=== PATIENT | female | born 1970 | race Caucasian/White ===

== ENCOUNTER 2017-02-21 12:55 | Emergency (ER) | payer BC, OTHER ==
[~2017-02-21] VITALS: Ht 163.8 cm; Wt 54.2 kg
[~2017-02-21 12:55] MED LIST: ACET-1256 PO; MULT-726 PO; OXYC1TAB3 PO; WARF5TAB7 PO
[2017-02-21 12:56] VITALS: BP 101/65; PULSE 93; TEMP 37; O2SAT 98; Ht 163.8 cm; Wt 54.2 kg
--- NOTE | 2017-02-21 13:25 | DIAGNOSTIC IMAGING REPORT ---
R WRIST MIN 3 VIEWS ROUTINE HISTORY: 47 years-old Female RIGHT, EVAL FX acute right wrist pain status post fall. COMPARISON: None available. TECHNIQUE: 4 views of the right wrist FINDINGS: There is mild soft tissue swelling about the wrist without acute fracture, dislocation or significant degenerative changes. IMPRESSION: Mild soft tissue swelling without acute bony abnormality. The above report was generated using voice recognition software. It may contain grammatical, syntax or spelling errors. Electronically signed by: Aidan Cabello M.D. 02/21/2017 1:24 PM Dictated Date/Time: 02/21/2017 1:23 PM
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
== END 2017-02-21 14:42 | disposition home or self-care (01) ==
LOC: C.EDB 12:57 → C.EDD 14:42
DX: S63.501A Unspecified sprain of right wrist, initial encounter (principal); X50.9XXA Other and unspecified overexertion or strenuous movements or postures, initial encounter; Z79.01 Long term (current) use of anticoagulants

== ENCOUNTER 2022-01-03 19:45 | Inpatient (IN) ==
[2022-01-03] MEDS ORDERED: ACETAMINOPHEN 1000 MG/100 ML IV IV STA (20:03)
[2022-01-03] MEDS ORDERED: ONDANSETRON INJ 2 MG/ML 2 ML VIAL IV STA (20:03)
[2022-01-03] MEDS ORDERED: SODIUM CHLORIDE 0.9% 1000ML 2,000 ML IV ONE (20:03)
[2022-01-03] MEDS ORDERED: HYDROmorphone INJ 0.5 MG/0.5 ML SYR IV STA ×2 (20:03→20:07)
--- NOTE | 2022-01-03 20:07 | Emergency Department Note ---
Impression & Plan Severe sepsis, Pyelonephritis ED Provider Note Name: MERLE SARABIA Age: 51 Sex: F Arrives Via: Walk-In Informant: Patient, friend ED Provider: Enzo Peoples MD Chief Complaint: Illness Impression: As per impressions above Medical Decision Makin-year-old female with a remote history of PEs and renal colic who is treated for a episode of pyelonephritis about 2 months ago arrives quite ill. Patient is febrile, tachycardic and ill-appearing on arrival. She is severely weak and unable to even stand. She is clearly in severe sepsis based on these findings. Her laboratory work-up was immediately started with blood cultures, lactic acid and she was empirically ordered 2 L normal saline along with meropenem following second blood culture obtained. She has diffuse abdominal tenderness to palpation primarily over the right side on repeat examinations. In the setting of a positive UA for UTI I did feel that getting the CT would be indicated. CT does show significant inflammation of the right kidney consistent with pyelonephritis. Patient's vitals are vastly improved with Tylenol and fluids. On repeat evaluation she is well-hydrated she is breathing comfortably and looks much improved. I will note that patient was in severe sepsis on arrival to the ER. She does not have hypotension other than with standing she is orthostatic. She does not have a significantly elevated lactate greater than 4. At this time she is not in septic shock. Prior Medical Record and Triage/Nursing Notes reviewed by Me Additional history obtained from chart Differentials:Viral syndrome, pharyngitis, pneumonia, influenza, meningitis, urinary tract infection, sepsis, bacteremia, as well as other pathologies. Vital Signs: reviewed and remarkable for fever, tachy Interventions: nss bolus 2 L IV, Meropenem 500mg IV, Tylenol IV Labs:Reviewed and remarkable for elevated WBC, elevated glucose, elevated Procalcitonin Imaging:ct a/p with iv contrast as per radiologist, left pyelonephritis Consults:Dr Gila Clayton Hospitalist Plan: Disposition:Hospitalization. Condition: Good History of Present Illness:51-year-old female arrives for evaluation of illness. Patient notes 2 to 3 days worsening urinary burning, frequency, flank pain. Over the last day increasing weakness, fatigue, abdominal pain, fevers, chills. She notes no bowel movement in the last 24 to 48 hours and feels somewhat constipated. She has diffuse abdominal discomfort now. She has no chest pain, shortness of breath, headache, neck pain, leg rashes, bruising or other signs or symptoms. She has no recent falls, trauma, injury. She had no medications prior to arrival. Any exertion makes worse rest makes better. Notes she had pyelonephritis about a month ago treated with Levaquin. She notes she had felt much better after this initially. ROS: See above HPI for pertinent positives & negatives. A total of 10 systems reviewed and were otherwise negative. Past Medical History:PE, renal colic Past Surgical History:Partial hysterectomy Family History:No significant past medical history, denies any renal disease or kidney stones and family Social History:Half pack a day smoker minimal alcohol intake Home Medications:No daily medications Allergies:Penicillin Vitals:Blood Pressure: 109/61, Pulse 116, RR 20, T 37.6C, O2 95% on RA Physical Exam: GENERAL: Patient is uncomfortable appearing and in moderate distress. Patient orthostatic on trying to stand from wheelchair. EYES: No scleral icterus, unremarkable pupils. ENT: Mucous membranes dry, no nasal congestion. NECK: No masses appreciated, nomeningismus, trachea is midline. RESPIRATORY: No dyspnea. Clear to auscultation and equal bilaterally. No wheeze, no rhonchi. CARDIOVASCULAR: Tachy.No murmurs, rubs, gallops appreciated. GASTROINTESTINAL: Diffuse mild TTP, moderate right abdominal TTP, otherwise abdomen soft, no peritonitis.Bowel sounds positive.No masses appreciated. BACK: No midline tenderness, + bilateral CVA tenderness EXTREMITIES: Normal motion all extremities, no cyanosis, no edema. NEUROLOGIC: Alert and oriented, no acute motor or sensory deficits, no focal weakness, cranial nerves grossly intact. SKIN: No rash, no jaundice, no diaphoresis. PSYCH: Appropriate GCS: 15 ED Course: Times/Reassessments: Patient vastly improved with IV fluids heart rate has improved she is well-hydrated and she looks much better. Critical Care: I have personally spent 30 minutes of critical care time in the direct management of this patient. Severe sepsis with pyelonephritis requiring fluids resucitation and management. This was a life/limb threatening event. This 30 minutes is in excess of all separately billable procedures. Enzo Peoples MD Past Med/Surg History Medical History Acute UTI Kidney stone Social History Smoking Status: Current every day smoker Preferred Language: Guamanian Feels Safe at Home: Yes Allergies Allergies Allergy/AdvReac Type Severity Reaction Status Date / Time Penicillins Allergy Severe as Unverified 01/03/22 22:14 child-throat swelled, hives ALL PAIN MEDS Allergy Unknown very Uncoded 01/03/22 22:14 sensative to even sm doses. very sleepy Home Meds Home Medications Medication Instructions Recorded Confirmed No Known Home Medications 01/03/22 01/03/22 Results & Data (ED) Vital Signs Vital Signs - 24 hr 01/03/22 19:52 01/03/22 21:06 Temperature 37.6 C H 37.8 C H Temperature Source Temporal Artery Scan Oral Pulse Rate 116 H Respiratory Rate 20 Respiratory Effort / Characteristics Non-Labored Spontaneous Respiratory Depth Normal Blood Pressure 109/61 Blood Pressure Mean 77 Blood Pressure Position Sitting Pulse Oximetry 95 Oxygen Delivery Method Room Air Sepsis Recent Fever Within 48 Hours No Sepsis New/Unexplained Change in Mental Status N/A Sepsis Action Taken by Nursing No Action Required Laboratory Data Result diagrams: 01/03/22 20:20 01/03/22 20:20 Lab Results 01/03/22 01/03/22 01/03/22 Range/Units 20:15 20:20 20:20 WBC 13.58 H (4.8-10.8) K/ul RBC 3.89 L (3.93-5.22) M/uL Hgb 12.9 (12.0-16.0) g/dl Hct 37.8 (34.1-44.9) % MCV 97.2 (80.0-100.0) fL MCH 33.2 (25.0-34.0) pg MCHC 34.1 (32.0-36.0) g/dL RDW Std Deviation 47.0 H (36.4-46.3) fL RDW Coeff of Nicole 13.2 (11.5-14.5) % Plt Count 219 (130-400) K/uL MPV 8.9 L (9.4-12.3) fL Immature Gran % (Auto) 0.4 % Neut % (Auto) 81.8 % Lymph % (Auto) 9.9 % [place] % (Auto) 7.7 % Eos % (Auto) 0.0 % Baso % (Auto) 0.2 % Neut # (Auto) 11.11 H (1.4-6.5) K/uL Lymph # (Auto) 1.34 (1.2-3.4) K/uL [place] # (Auto) 1.05 H (0.24-0.82) K/uL Eos # (Auto) 0.00 (0-0.50) K/uL Baso # (Auto) 0.03 (0-0.2) K/uL Immature Gran # (Auto) 0.05 H (0.00-0.02) K/uL Sodium (136-145) mmol/L Potassium (3.5-5.1) mmol/L Chloride (98-107) mmol/L Carbon Dioxide (21-32) mmol/L Anion Gap (3-11) BUN (6-23) mg/dl Creatinine (0.6-1.2) mg/dl Est Cr Clr Drug Dosing ml/min Est GFR ( Amer) ml/min Est GFR (Non-Af Amer) ml/min BUN/Creatinine Ratio (10-20) Glucose (70-99(Fasting)) mg/dl Lactate 2.3 H* (0.4-2.0) mmol/L Calcium (8.5-10.1) mg/dl Magnesium (1.7-2.4) mg/dl Total Bilirubin (0.2-1.0) mg/dl Direct Bilirubin (0-0.2) mg/dl AST (13-39) U/L ALT (7-52) U/L Alkaline Phosphatase (34-104) U/L Troponin I High Sens (0-14) pg/ml Total Protein (6.0-8.3) gm/dl Albumin (3.4-5.0) gm/dl Lipase (11-82) U/L Procalcitonin (0-0.5) ng/ml TSH (0.300-4.500) uIu/ml Urine Color Yellow Urine Appearance Cloudy A (Clear) Urine pH 5.5 (4.5-7.5) Ur Specific [place] 1.019 (1.000-1.030) Urine Protein 3+ H (Negative) Urine Glucose (UA) Negative (Negative) Urine Ketones Trace H (Negative) Urine Blood 3+ H (Negative) Urine Nitrite Positive A (Negative) Urine Bilirubin Negative (Negative) Urine Urobilinogen Negative (Negative) Ur Leukocyte Esterase 2+ H (Negative) Urine WBC (Auto) >30 H (0-5) /hpf Urine RBC (Auto) >30 H (0-4) /hpf U Hyaline Cast (Auto) 1-5 (0-5) /lpf U Epithel Cells (Auto) 20-30 H (0-5) /lpf Urine Bacteria (Auto) 3+ H (Negative) SARS-CoV-2, RNA, NAAT (NEGATIVE) 01/03/22 01/03/22 01/03/22 Range/Units 20:20 20:20 20:25 WBC (4.8-10.8) K/ul RBC (3.93-5.22) M/uL Hgb (12.0-16.0) g/dl Hct (34.1-44.9) % MCV (80.0-100.0) fL MCH (25.0-34.0) pg MCHC (32.0-36.0) g/dL RDW Std Deviation (36.4-46.3) fL RDW Coeff of Nicole (11.5-14.5) % Plt Count (130-400) K/uL MPV (9.4-12.3) fL Immature Gran % (Auto) % Neut % (Auto) % Lymph % (Auto) % [place] % (Auto) % Eos % (Auto) % Baso % (Auto) % Neut # (Auto) (1.4-6.5) K/uL Lymph # (Auto) (1.2-3.4) K/uL [place] # (Auto) (0.24-0.82) K/uL Eos # (Auto) (0-0.50) K/uL Baso # (Auto) (0-0.2) K/uL Immature Gran # (Auto) (0.00-0.02) K/uL Sodium 131 L (136-145) mmol/L Potassium 3.6 (3.5-5.1) mmol/L Chloride 98 (98-107) mmol/L Carbon Dioxide 23 (21-32) mmol/L Anion Gap 10 (3-11) BUN 11 (6-23) mg/dl Creatinine 0.99 (0.6-1.2) mg/dl Est Cr Clr Drug Dosing 53.6 ml/min Est GFR ( Amer) 77.0 ml/min Est GFR (Non-Af Amer) 66.4 ml/min BUN/Creatinine Ratio 11.1 (10-20) Glucose 228 H (70-99(Fasting)) mg/dl Lactate (0.4-2.0) mmol/L Calcium 9.1 (8.5-10.1) mg/dl Magnesium 1.8 (1.7-2.4) mg/dl Total Bilirubin 0.5 (0.2-1.0) mg/dl Direct Bilirubin 0.0 (0-0.2) mg/dl AST 12 L (13-39) U/L ALT 11 (7-52) U/L Alkaline Phosphatase 93 (34-104) U/L Troponin I High Sens 4.0 (0-14) pg/ml Total Protein 7.5 (6.0-8.3) gm/dl Albumin 3.9 (3.4-5.0) gm/dl Lipase 13 (11-82) U/L Procalcitonin 0.73 H (0-0.5) ng/ml TSH (0.300-4.500) uIu/ml Urine Color Urine Appearance (Clear) Urine pH (4.5-7.5) Ur Specific [place] (1.000-1.030) Urine Protein (Negative) Urine Glucose (UA) (Negative) Urine Ketones (Negative) Urine Blood (Negative) Urine Nitrite (Negative) Urine Bilirubin (Negative) Urine Urobilinogen (Negative) Ur Leukocyte Esterase (Negative) Urine WBC (Auto) (0-5) /hpf Urine RBC (Auto) (0-4) /hpf U Hyaline Cast (Auto) (0-5) /lpf U Epithel Cells (Auto) (0-5) /lpf Urine Bacteria (Auto) (Negative) SARS-CoV-2, RNA, NAAT NEGATIVE (NEGATIVE) 01/03/22 01/03/22 Range/Units 21:01 22:20 WBC (4.8-10.8) K/ul RBC (3.93-5.22) M/uL Hgb (12.0-16.0) g/dl Hct (34.1-44.9) % MCV (80.0-100.0) fL MCH (25.0-34.0) pg MCHC (32.0-36.0) g/dL RDW Std Deviation (36.4-46.3) fL RDW Coeff of Nicole (11.5-14.5) % Plt Count (130-400) K/uL MPV (9.4-12.3) fL Immature Gran % (Auto) % Neut % (Auto) % Lymph % (Auto) % [place] % (Auto) % Eos % (Auto) % Baso % (Auto) % Neut # (Auto) (1.4-6.5) K/uL Lymph # (Auto) (1.2-3.4) K/uL [place] # (Auto) (0.24-0.82) K/uL Eos # (Auto) (0-0.50) K/uL Baso # (Auto) (0-0.2) K/uL Immature Gran # (Auto) (0.00-0.02) K/uL Sodium (136-145) mmol/L Potassium (3.5-5.1) mmol/L Chloride (98-107) mmol/L Carbon Dioxide (21-32) mmol/L Anion Gap (3-11) BUN (6-23) mg/dl Creatinine (0.6-1.2) mg/dl Est Cr Clr Drug Dosing ml/min Est GFR ( Amer) ml/min Est GFR (Non-Af Amer) ml/min BUN/Creatinine Ratio (10-20) Glucose (70-99(Fasting)) mg/dl Lactate 0.7 (0.4-2.0) mmol/L Calcium (8.5-10.1) mg/dl Magnesium (1.7-2.4) mg/dl Total Bilirubin (0.2-1.0) mg/dl Direct Bilirubin (0-0.2) mg/dl AST (13-39) U/L ALT (7-52) U/L Alkaline Phosphatase (34-104) U/L Troponin I High Sens (0-14) pg/ml Total Protein (6.0-8.3) gm/dl Albumin (3.4-5.0) gm/dl Lipase (11-82) U/L Procalcitonin (0-0.5) ng/ml TSH 1.609 (0.300-4.500) uIu/ml Urine Color Urine Appearance (Clear) Urine pH (4.5-7.5) Ur Specific [place] (1.000-1.030) Urine Protein (Negative) Urine Glucose (UA) (Negative) Urine Ketones (Negative) Urine Blood (Negative) Urine Nitrite (Negative) Urine Bilirubin (Negative) Urine Urobilinogen (Negative) Ur Leukocyte Esterase (Negative) Urine WBC (Auto) (0-5) /hpf Urine RBC (Auto) (0-4) /hpf U Hyaline Cast (Auto) (0-5) /lpf U Epithel Cells (Auto) (0-5) /lpf Urine Bacteria (Auto) (Negative) SARS-CoV-2, RNA, NAAT (NEGATIVE) Administered Medications Lactated Ringer's (Lr) 1,000 mls @ 80 mls/hr IV .[id number] ONE Stop: 01/04/22 11:15 Last Admin: 01/04/22 00:40 Dose: 80 mls/hr Documented By: DORY Ibuprofen (Ibuprofen 200 Mg Tab) 200 mg PO Q6H PRN PRN Reason: Mild Pain 1-3 Stop: 02/02/22 22:45 Last Admin: 01/04/22 00:50 Dose: 200 mg Documented By: DORY Discontinued Medications Acetaminophen (Acetaminophen 1000 Mg/100 Ml Iv) 1,000 mg IV NOW STA Stop: 01/03/22 20:04 Last Admin: 01/03/22 20:35 Dose: 1,000 mg Documented By: MIRIAN Hydromorphone HCl (Hydromorphone Inj 0.5 Mg/0.5 Ml Syr) 0.5 mg IV NOW STA Stop: 01/03/22 20:04 Last Admin: 01/03/22 21:37 Dose: Not Given Documented By: SAMANTHA Hydromorphone HCl (Hydromorphone Inj 0.5 Mg/0.5 Ml Syr) 0.25 mg IV NOW STA Stop: 01/03/22 20:08 Last Admin: 01/03/22 20:37 Dose: 0.25 mg Documented By: MIRIAN Sodium Chloride (Nss 1000ml) 2,000 mls @ 999 mls/hr IV .Q2H1M ONE Stop: 01/03/22 22:03 Last Infusion: 01/03/22 22:54 Dose: 0 mls/hr Documented By: Admin: 01/03/22 20:37 Dose: 999 mls/hr Documented By: MIRIAN Meropenem 500 mg/ Syringe 10 mls @ 2 mls/min IV NOW STA; Protocol Stop: 01/03/22 20:41 Last Admin: 01/03/22 21:40 Dose: 2 mls/min Documented By: MIRIAN Magnesium Sulfate/Dextrose (Magnesium Sulfate / D5w) 1 gm in 100 mls @ 50 mls/ hr IV ONE ONE Stop: 01/04/22 00:04 Last Infusion: 01/04/22 01:09 Dose: 0 mls/hr Documented By: Admin: 01/03/22 22:38 Dose: 50 mls/hr Documented By: MIRIAN Ioversol (Optiray 300 100ml) 85 ml IV ONCE ONE Stop: 01/03/22 21:16 Last Admin: 01/03/22 21:15 Dose: 85 ml Documented By: KYLIE Ondansetron HCl (Ondansetron Inj 2 Mg/Ml 2 Ml Vial) 4 mg IV NOW STA Stop: 01/03/22 20:04 Last Admin: 01/03/22 20:35 Dose: 4 mg Documented By: MIRIAN Polyethylene Glycol (Polyethylene (Miralax) 17 Gm Pack) 17 gm PO NOW STA Stop: 01/03/22 22:47 Last Admin: 01/03/22 23:21 Dose: 17 gm Documented By: MIRIAN Potassium Chloride (Potassium Chloride Crtab 20 Meq Tabcr) 40 meq PO NOW STA Stop: 01/03/22 22:47 Last Admin: 01/03/22 23:21 Dose: 40 meq Documented By: MIRIAN Senna/Docusate Sodium (Docusate Sodium/Senna 50/8.6mg Tab) 1 tab PO NOW STA Stop: 01/03/22 23:10 Last Admin: 01/04/22 00:40 Dose: 1 tab Documented By: DORY Imaging Data Radiologist's Impression: Abdomen/Pelvis CT 01/03/22 20:56 CT abd pelvis IV con only CLINICAL HISTORY: sepsis, pyelonephritis TECHNIQUE: Helical axial images of the abdomen and pelvis were obtained and displayed. Automated dose lowering techniques and/or adjustment according to patient size were utilized for this exam. This exam was performed with intravenous contrast. CT DOSE: 246.71 mGy.cm COMPARISON: Comparison is made to CT abdomen pelvis 12/04/2021 FINDINGS: Lower chest: No acute abnormality Liver: Unremarkable. No focal lesions are seen. Gallbladder and biliary tree: No calcified gallstones. Normal caliber wall. No intra- or extrahepatic biliary ductal dilation. Pancreas: Unremarkable, no focal lesions. Spleen: Unremarkable. Adrenals: Mild ureteral thickening is unchanged from prior exam. Kidneys and ureters: The right kidney demonstrates wedge-shaped hypoperfusing regions without intact cortical rim. There is perinephric stranding. The ureter wall is thickened and hyperenhancing. The left kidney is unremarkable apart from subcentimeter hypodensities.. Bladder: Diffuse homogeneous wall thickening is seen. Reproductive organs: Unremarkable. Bowel: Unremarkable. Lymph nodes Retroperitoneal: Subcentimeter lymph nodes are noted. Pelvic: Unremarkable. Mesenteric: Unremarkable. Peritoneum: Normal. Vessels: Atherosclerotic calcifications are seen. Abdominal wall: Unremarkable. Bones: Degenerative changes in the visualized spine. IMPRESSION: 1. Findings are compatible with right pyoureter. Bladder wall thickening is compatible with cystitis. The left kidney is unremarkable. 2. Additional findings as above. ACT 112: Negative or not required by law. Electronically signed by: Kevin Sparks M.D. 01/03/2022 9:32 PM Discharge Plan Visit Data Chief Complaint: Abdominal Pain Stated Complaint: LOWER ABD PAIN, LOWER BACK PAIN ED Provider: Enzo Peoples Discharge Problem: Severe sepsis, Pyelonephritis Patient Disposition: Admitted As Inpatient Discharge Instructions Interventions: ED Discharge Assessment Last Done: 01/03/22 23:46
[2022-01-03 20:32] LABS: Basophils # (auto) 0.03 K/uL (0-0.2); Basophils % (auto) 0.2 %; Hematocrit (blood only) 37.8 % (34.1-44.9); Hemoglobin 12.9 g/dl (12.0-16.0); Immature Granulocytes # (auto) 0.05 K/uL (0.00-0.02); Immature Granulocytes % (auto) 0.4 %; Lymphocytes # (auto) 1.34 K/uL (1.2-3.4); Lymphocytes % (auto) 9.9 %; Mean Corpuscular Hemoglobin 33.2 pg (25.0-34.0); Mean Corpuscular Hgb Conc 34.1 g/dL (32.0-36.0); Mean Corpuscular Volume 97.2 fL (80.0-100.0); Mean Platelet Volume 8.9 fL (9.4-12.3); Monocytes # (auto) 1.05 K/uL (0.24-0.82); Monocytes % (auto) 7.7 %; Neutrophils # (auto) 11.11 K/uL (1.4-6.5); Neutrophils % (auto) 81.8 %; Platelet Count 219 K/uL (130-400); RDW Coefficient of Variation 13.2 % (11.5-14.5); Red Blood Count 3.89 M/uL (3.93-5.22); White Blood Count 13.58 K/ul (4.8-10.8)
[2022-01-03] MEDS ORDERED: MEROPENEM 500 MG in SYRINGE 0 ML IV STA (20:37)
[2022-01-03 20:40] LABS: Appearance Urine Cloudy (Clear); Bacteria Urine Automated 3+ (Negative); Bilirubin Urine Negative (Negative); Blood Urine 3+ (Negative); Color Urine Yellow; Epithelial Cell Urine Auto 20-30 /lpf (0-5); Glucose Urine UA Negative (Negative); Ketones Urine Trace (Negative); Leukocyte Esterase Urine 2+ (Negative); Nitrite Urine Positive (Negative); Protein Urine 3+ (Negative); RBC Urine Automated >30 /hpf (0-4); Specific Gravity Urine 1.019 (1.000-1.030); Urobilinogen Urine Negative (Negative); WBC Urine Automated >30 /hpf (0-5); pH Urine 5.5 (4.5-7.5)
[2022-01-03 20:52] LABS: Albumin Level 3.9 gm/dl (3.4-5.0); BUN Creatinine Ratio 11.1 (10-20); Bilirubin,Total 0.5 mg/dl (0.2-1.0); Calcium 9.1 mg/dl (8.5-10.1); Creatinine Clr Calc Pharmacy 53.6 ml/min; Est GFR (Non-African American) 66.4 ml/min; Magnesium 1.8 mg/dl (1.7-2.4); Potassium 3.6 mmol/L (3.5-5.1); Total Protein 7.5 gm/dl (6.0-8.3)
[2022-01-03] MEDS ORDERED: OPTIRAY 300 100mL IV ONE (21:15)
--- NOTE | 2022-01-03 21:34 | CT Scan Report ---
CT abd pelvis IV con only CLINICAL HISTORY: sepsis, pyelonephritis TECHNIQUE: Helical axial images of the abdomen and pelvis were obtained and displayed. Automated dose lowering techniques and/or adjustment according to patient size were utilized for this exam. This e xam was performed with intravenous contrast. CT DOSE: 246.71 mGy.cm COMPARISON: Comparison is made to CT abdomen pelvis 12/04/2021 FINDINGS: Lower chest: No acute abnormality Liver: Unremarkable. No focal lesions are seen. Gallbladder and biliary tree: No calcified gallstones. Normal caliber wall. No intra- or extrahepatic biliary ductal dilation. Pancreas: Unremarkable, no focal lesions. Spleen: Unremarkable. Adrenals: Mild ureteral thickening is unchanged from prior exam. Kidneys and ureters: The right kidney demonstrates wedge-shaped hypoperfusing regions without intact cortical rim. There is perinephric stranding. The ureter wall is thickened and hyperenhancing. The le ft kidney is unremarkable apart from subcentimeter hypodensities.. Bladder: Diffuse homogeneous wall thickening is seen. Reproductive organs: Unremarkable. Bowel: Unremarkable. Lymph nodes Retroperitoneal: Subcentimeter lymph nodes are noted. Pelvic: Unremarkable. Mesenteric: Unremarkable. Peritoneum: Normal. Vessels: Atherosclerotic calcifications are seen. Abdominal wall: Unremarkable. Bones: Degenerative changes in the visualized spine. IMPRESSION: 1. Findings are compatible with right pyoureter. Bladder wall thickening is compatible with cystitis . The left kidney is unremarkable. 2. Additional findings as above. ACT 112: Negative or not required by law. Electronically signed by: Kevin Sparks M.D. 01/03/2022 9:32 PM
[2022-01-03] MEDS ORDERED: MAGNESIUM SULFATE / D5W 1 GM/100 ML BAG IV ONE (22:05)
--- NOTE | 2022-01-03 22:41 | History & Physical Report ---
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 Heparin subcu Full code Text document was generated using [employer] voice recognition software. It may contain grammatical or spelling errors. Kindly contact undersigned for clarification of any documentation item in question. History of Present Illness Chief Complaint: Dysuria, abdominal pain Primary Care Provider: Forrest Smith (Former PCP Dr. Partida has since retired but patient requesting to follow-up with new provider at the clinic.) (Patient with prior [facility] account under the name Jayda Lundy, ) History obtained from patient and records. 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 Last confinement June 2015 for acute pulm embolism attributed to possible tamoxifen use. Patient discharged home on Coumadin course. Patient seen at the ER last month for low back pain with urinary frequency/dysuria and low-grade fever. Impression was pyelonephritis. Patient discharged on levofloxacin course Symptoms improved. 3 days history of dysuria symptoms associated with flank pain and lower abdominal pain. No hematuria. Some nausea. No emesis. Constipation. Fever chills at home no chest pain, no shortness of breath. Meropenem administered at the ER for sepsis. 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 very sleepy Home Medications Medication Instructions Recorded Confirmed Type No Known Home Medications 01/03/22 01/03/22 History Past Med/Surg History Medical History Acute UTI Kidney stone Social History Smoking Status: Current every day smoker Preferred Language: Faroese Feels Safe at Home: Yes Review of Systems Review of Systems: As per HPI, all other systems reviewed and negative Physical Exam Physical Exam: GENERAL: Slightly uncomfortable, pleasant, underweight, dysphonic, no respiratory distress SKIN: Normal color, warm HEENT: [place] palpebral conjunctivae, no ptosis, dry buccal mucosa NECK : Supple, no tenderness CHEST : CTA, no tenderness HEART : Tachycardic, no obvious murmurs ABDOMEN: Some distention, hypogastric tenderness EXTREMITIES : No LE swelling/tenderness, no other conspicuous deformities noted NEUROLOGIC : Coherent, no facial asymmetry, no other gross focality Results & Data Results & Data ([facility]) Vital Signs (Past 12 Hours) Vital Signs Temp Pulse Resp BP Pulse Ox O2 Del Method 01/03/22 21:06 37.8 C H 01/03/22 19:52 37.6 C H 116 H 20 109/61 95 Room Air Laboratory Results Laboratory Results WBC 13.58 K/ul (4.8-10.8) H 01/03/22 20:20 RBC 3.89 M/uL (3.93-5.22) L 01/03/22 20:20 Hgb 12.9 g/dl (12.0-16.0) 01/03/22 20:20 Hct 37.8 % (34.1-44.9) 01/03/22 20:20 MCV 97.2 fL (80.0-100.0) 01/03/22 20:20 MCH 33.2 pg (25.0-34.0) 01/03/22 20:20 MCHC 34.1 g/dL (32.0-36.0) 01/03/22 20:20 RDW Std Deviation 47.0 fL (36.4-46.3) H 01/03/22 20:20 RDW Coeff of Nicole 13.2 % (11.5-14.5) 01/03/22 20:20 Plt Count 219 K/uL (130-400) 01/03/22 20:20 MPV 8.9 fL (9.4-12.3) L 01/03/22 20:20 Immature Gran % (Auto) 0.4 % 01/03/22 20:20 Neut % (Auto) 81.8 % 01/03/22 20:20 Lymph % (Auto) 9.9 % 01/03/22 20:20 [place] % (Auto) 7.7 % 01/03/22 20:20 Eos % (Auto) 0.0 % 01/03/22 20:20 Baso % (Auto) 0.2 % 01/03/22 20:20 Neut # (Auto) 11.11 K/uL (1.4-6.5) H 01/03/22 20:20 Lymph # (Auto) 1.34 K/uL (1.2-3.4) 01/03/22 20:20 [place]y # (Auto) 1.05 K/uL (0.24-0.82) H 01/03/22 20:20 Eos # (Auto) 0.00 K/uL (0-0.50) 01/03/22 20:20 Baso # (Auto) 0.03 K/uL (0-0.2) 01/03/22 20:20 Immature Gran # (Auto) 0.05 K/uL (0.00-0.02) H 01/03/22 20:20 Sodium 131 mmol/L (136-145) L 01/03/22 20:20 Potassium 3.6 mmol/L (3.5-5.1) 01/03/22 20:20 Chloride 98 mmol/L (98-107) 01/03/22 20:20 Carbon Dioxide 23 mmol/L (21-32) 01/03/22 20:20 Anion Gap 10 (3-11) 01/03/22 20:20 BUN 11 mg/dl (6-23) 01/03/22 20:20 Creatinine 0.99 mg/dl (0.6-1.2) 01/03/22 20:20 Est Cr Clr Drug Dosing 53.6 ml/min 01/03/22 20:20 Est GFR ( Amer) 77.0 ml/min 01/03/22 20:20 Est GFR (Non-Af Amer) 66.4 ml/min 01/03/22 20:20 BUN/Creatinine Ratio 11.1 (10-20) 01/03/22 20:20 Glucose 228 mg/dl (70-99(Fasting)) H 01/03/22 20:20 Lactate 2.3 mmol/L (0.4-2.0) H* 01/03/22 20:20 Calcium 9.1 mg/dl (8.5-10.1) 01/03/22 20:20 Magnesium 1.8 mg/dl (1.7-2.4) 01/03/22 20:20 Total Bilirubin 0.5 mg/dl (0.2-1.0) 01/03/22 20:20 Direct Bilirubin 0.0 mg/dl (0-0.2) 01/03/22 20:20 AST 12 U/L (13-39) L 01/03/22 20:20 ALT 11 U/L (7-52) 01/03/22 20:20 Alkaline Phosphatase 93 U/L (34-104) 01/03/22 20:20 Troponin I High Sens 4.0 pg/ml (0-14) 01/03/22 20:20 Total Protein 7.5 gm/dl (6.0-8.3) 01/03/22 20:20 Albumin 3.9 gm/dl (3.4-5.0) 01/03/22 20:20 Lipase 13 U/L (11-82) 01/03/22 20:20 Procalcitonin 0.73 ng/ml (0-0.5) H 01/03/22 20:20 Urine Color Yellow 01/03/22 20:15 Urine Appearance Cloudy (Clear) A 01/03/22 20:15 Urine pH 5.5 (4.5-7.5) 01/03/22 20:15 Ur Specific Mccle[place]and 1.019 (1.000-1.030) 01/03/22 20:15 Urine Protein 3+ (Negative) H 01/03/22 20:15 Urine Glucose (UA) Negative (Negative) 01/03/22 20:15 Urine Ketones Trace (Negative) H 01/03/22 20:15 Urine Blood 3+ (Negative) H 01/03/22 20:15 Urine Nitrite Positive (Negative) A 01/03/22 20:15 Urine Bilirubin Negative (Negative) 01/03/22 20:15 Urine Urobilinogen Negative (Negative) 01/03/22 20:15 Ur Leukocyte Esterase 2+ (Negative) H 01/03/22 20:15 Urine WBC (Auto) >30 /hpf (0-5) H 01/03/22 20:15 Urine RBC (Auto) >30 /hpf (0-4) H 01/03/22 20:15 U Hyaline Cast (Auto) 1-5 /lpf (0-5) 01/03/22 20:15 U Epithel Cells (Auto) 20-30 /lpf (0-5) H 01/03/22 20:15 Urine Bacteria (Auto) 3+ (Negative) H 01/03/22 20:15 SARS-CoV-2, RNA, NAAT NEGATIVE (NEGATIVE) 01/03/22 20:25 Impressions Abdomen/Pelvis CT 01/03/22 20:56 CT abd pelvis IV con only CLINICAL HISTORY: sepsis, pyelonephritis TECHNIQUE: Helical axial images of the abdomen and pelvis were obtained and displayed. Automated dose lowering techniques and/or adjustment according to patient size were utilized for this exam. This exam was performed with intravenous contrast. CT DOSE: 246.71 mGy.cm COMPARISON: Comparison is made to CT abdomen pelvis 12/04/2021 FINDINGS: Lower chest: No acute abnormality Liver: Unremarkable. No focal lesions are seen. Gallbladder and biliary tree: No calcified gallstones. Normal caliber wall. No intra- or extrahepatic biliary ductal dilation. Pancreas: Unremarkable, no focal lesions. Spleen: Unremarkable. Adrenals: Mild ureteral thickening is unchanged from prior exam. Kidneys and ureters: The right kidney demonstrates wedge-shaped hypoperfusing regions without intact cortical rim. There is perinephric stranding. The ureter wall is thickened and hyperenhancing. The left kidney is unremarkable apart from subcentimeter hypodensities.. Bladder: Diffuse homogeneous wall thickening is seen. Reproductive organs: Unremarkable. Bowel: Unremarkable. Lymph nodes Retroperitoneal: Subcentimeter lymph nodes are noted. Pelvic: Unremarkable. Mesenteric: Unremarkable. Peritoneum: Normal. Vessels: Atherosclerotic calcifications are seen. Abdominal wall: Unremarkable. Bones: Degenerative changes in the visualized spine. IMPRESSION: 1. Findings are compatible with right pyoureter. Bladder wall thickening is compatible with cystitis. The left kidney is unremarkable. 2. Additional findings as above. ACT 112: Negative or not required by law. Electronically signed by: Kevin Sparks M.D. 01/03/2022 9:32 PM
[2022-01-03] MEDS ORDERED: POLYETHYLENE (MIRALAX) 17 GM PACK PO STA (22:46)
[2022-01-03] MEDS ORDERED: LACTATED RINGER'S 1,000 ML IV ONE (22:46)
[2022-01-03] MEDS ORDERED: POTASSIUM CHLORIDE CRTAB 20 MEQ TABCR PO STA (22:46)
[2022-01-03] MEDS ORDERED: POLYETHYLENE (MIRALAX) 17 GM PACK PO PRN (22:46)
[2022-01-03] MEDS ORDERED: DOCUSATE SODIUM/SENNA 50/8.6MG TAB PO STA (23:09)
[2022-01-04] MEDS ORDERED: PROMETHAZINE HCL 6.25 MG in SODIUM CHLORIDE 0.9% 50 ML IV PRN (00:21)
[2022-01-04] MEDS: IBUPROFEN 200 MG TAB PO PRN (00:50)
[2022-01-04] MEDS ORDERED: PHENAZOPYRIDINE HCL 100 MG TAB PO PRN (02:10)
[2022-01-04] MEDS ORDERED: NORMOSOL-R 1,000 ML IV ONE (04:24)
[2022-01-04] MEDS ORDERED: LACTATED RINGER'S 1,000 ML IV ONE (05:30)
[2022-01-04] MEDS: HEPARIN SOD 5,000 UNIT/0.5 ML VIAL SQ SCH ×3 (05:56→20:04)
[2022-01-04 06:00] LABS: BUN Creatinine Ratio 15.8 (10-20); Calcium 7.7 mg/dl (8.5-10.1); Est GFR (Non-African American) 91.5 ml/min
[2022-01-04] MEDS ORDERED: CEFEPIME 2,000 MG in SYRINGE 0 ML IV SCH (06:00)
[2022-01-04] MEDS: KETOROLAC TROMETHAMINE 15 MG/ML VIAL IV PRN ×3 (06:01→23:20)
[2022-01-04 06:20] LABS: Basophils # (auto) 0.02 K/uL (0-0.2); Basophils % (auto) 0.2 %; Eosinophils # (auto) 0.02 K/uL (0-0.50); Eosinophils % (auto) 0.2 %; Hematocrit (blood only) 30.4 % (34.1-44.9); Immature Granulocytes # (auto) 0.05 K/uL (0.00-0.02); Immature Granulocytes % (auto) 0.5 %; Lymphocytes # (auto) 0.74 K/uL (1.2-3.4); Lymphocytes % (auto) 7.7 %; Mean Corpuscular Hemoglobin 32.8 pg (25.0-34.0); Mean Corpuscular Hgb Conc 32.9 g/dL (32.0-36.0); Mean Corpuscular Volume 99.7 fL (80.0-100.0); Mean Platelet Volume 8.9 fL (9.4-12.3); Monocytes # (auto) 0.68 K/uL (0.24-0.82); Monocytes % (auto) 7.1 %; Neutrophils % (auto) 84.3 %; Platelet Count 169 K/uL (130-400); RDW Coefficient of Variation 13.2 % (11.5-14.5); RDW Standard Deviation 48.6 fL (36.4-46.3); Red Blood Count 3.05 M/uL (3.93-5.22); White Blood Count 9.61 K/ul (4.8-10.8)
[2022-01-04] MEDS: traMADol HCL 50 MG TABLET PO PRN ×2 (07:59→20:03)
[2022-01-04] MEDS ORDERED: DOCUSATE SODIUM/SENNA 50/8.6MG TAB PO SCH (09:00)
--- NOTE | 2022-01-04 10:47 | Urology Progress Note ---
Date of Service January 04, 2022 Assessment & Plan (1) Pyelonephritis: (2) Severe sepsis: Plan Based on her history and imaging, she appears to have a pyelonephritis leading to sepsis of urologic origin. She is improving with antibiotics and fluid resuscitation. She denies any recent kidney stone type pain, and I do not appreciate any obstructing stones on the CT scan that would necessitate placement of a ureteral stent. For now would recommend continuing broad- spectrum antibiotics and tailoring once culture data becomes available. We will hold off on any intervention such as stent placement for now. If she has persistent fevers or positive cultures after another 48 to 72 hours, I recommend reimaging to evaluate for possible abscess formation within the kidneys, although the CT from 01/03/2022 did not identify any drainable fluid collections. There may be a role for future discussion of preventing recurrent UTIs, although that can be done as an outpatient. Urology will follow along. Admission and Anticipated Discharge Date Admission Date: January 03, 2022 Subjective This is a 59-year-old female who presented to the emergency department on 01/03/2022 with fevers chills, lower abdominal and bilateral flank pain. Review of the emergency room note indicates that she was severely ill-appearing on arrival and received fluid resuscitation, antibiotics and cultures were obtained due to concern for severe sepsis. Her symptoms and vital spines responded well to Tylenol and fluid resuscitation. Work-up in the emergency department was notable for leukocytosis (WBC 13.58), normal hemoglobin (12.9). She was mildly hyponatremic with sodium 131. Creatinine was normal at 0.99. Glucose was elevated at 288. Urinalysis was grossly positive with 3+ bacteria, 2+ leukocyte esterase, positive nitrites and 3+ blood. She was COVID-negative. A CT scan was performed which commented on likely pyoureter, which prompted urology consultation. At the bedside this morning, she reports that she is feeling much better than she did on arrival. She has a history of nephrolithiasis but none recently. She describes the pain that she has had over the past couple days is lower down the back, not associated with nausea, and not similar to prior kidney stone episodes. She has had some urinary pressure but denies any significant burning or dysuria. She denies any lightheadedness. She notes that she was seen in the emergency department approximately 1 month ago for suspected UTI and likely pyelonephritis, which responded well to antibiotics. Before that episode she had no prior UTIs. She denies any history of surgery on the urinary tract. She denies any history of hematuria. I independently reviewed her CT scan from 01/03/22. Her left kidney is in orthotopic position and enhances homogeneously throughout. There is no hydronephrosis and no stones of the left kidney. Her right kidney is in the normal location although slightly anteriorly rotated. The parenchyma is heterogeneously enhancing, suspicious for pyelonephritis. There is thickening of the wall of the renal pelvis and the right ureter. There were no apparent stones in the right kidney and no obvious stones within the right ureter. There are some pelvic calcifications likely representing phleboliths. There appears to be significant stool in the bowel, consistent with her history of constipation. Review of Systems Review of Systems: 14 point review of systems negative except for otherwise indicated. Constitutional: Recent fevers and chills Genitourinary: Lower abdominal/bladder pressure Physical Exam Constitutional: well developed; no acute distress Eyes: + anicteric sclerae; pupils not irregular Respiratory: normal respiratory effort; no respiratory distress, does not use accessory muscles and no cough Cardiovascular: well perfused Gastrointestinal (Abdomen): Abdomen soft, mildly tender to lower abdominal palpation. No CVA tenderness bilaterally. Musculoskeletal: Extremities: extremities normal to inspection Skin: normal turgor (Mildly flushed); no rashes and no lesions Neurologic: moves all extremities and awake Psychiatric: Orientation: alert and oriented x 3 Genitourinary: Turbid appearing urine in the hat within the toilet Results & Data ([facility]) Vital Signs (Past 12 Hours) Vital Signs Temp Pulse Pulse Resp BP BP Pulse Ox 01/04/22 08:38 36.7 C 88 17 66/45 L 93/51 L 94 01/04/22 06:06 74/48 L 97/61 L 01/04/22 04:24 37.3 C 100 H 20 73/43 L 100 01/04/22 00:21 65 01/04/22 00:39 100/61 01/04/22 00:06 36.7 C 85 20 73/42 L 94 O2 Del Method 01/04/22 08:38 Room Air 01/04/22 06:06 01/04/22 04:24 01/04/22 00:21 01/04/22 00:39 01/04/22 00:06 Room Air PG Care Time/CCT Total # of Minutes Spent Total Time Spent with Patient: Total time spent is greater than 50% in coordination of care (as documented) at patient's floor/unit and/or counseling patient: Coding Level of Care Code 66377 Inpt Consult Level 4 Diagnoses Pyelonephritis N12 Severe sepsis A41.9; R65.20
[2022-01-04 12:12] LABS: A calco-baum cmplx NotReported Not Detected (NotDetected); Bact fragilis Not Reported Not Detected (NotDetected); C auris Not Reported Not Detected (NotDetected); CTX-M Resistant Gene Not Detected (NotDetected); Calbicans Not Reported Not Detected (NotDetected); Candida glabrata Not Reported Not Detected (NotDetected); Candida krusei Not Reported Not Detected (NotDetected); Cneoformans/gatti Not Reported Not Detected (NotDetected); Cparapsilosis Not Reported Not Detected (NotDetected); Ctropicalis Not Reported Not Detected (NotDetected); E cloacae compx Not Reported Not Detected (NotDetected); Efaecalis Not Reported Not Detected (NotDetected); Efaecium Not Reported Not Detected (NotDetected); Enterobacterales DETECTED (NotDetected); Enterobacterales Not Reported DETECTED (NotDetected); Escherichia coli Not Reported DETECTED (NotDetected); H influenzae Not Reported Not Detected (NotDetected); IMP Resistant Gene Not Detected (NotDetected); K aerogenes Not Reported Not Detected (NotDetected); KPC Resistant Gene Not Detected (NotDetected); Koxytoca Not Reported Not Detected (NotDetected); Kpneumoniae grp Not Reported Not Detected (NotDetected); Lmonocyt Not Reported Not Detected (NotDetected); N meningitidis Not Reported Not Detected (NotDetected); NDM Resistant Gene Not Detected (NotDetected); OXA 48 Like Resistant Gene Not Detected (NotDetected); P aeruginosa Not Reported Not Detected (NotDetected); Proteus spp Not Reported Not Detected (NotDetected); Salmonella spp Not Reported Not Detected (NotDetected); Smarcescens Not Reported Not Detected (NotDetected); Staph lugdunensis Not Reported Not Detected (NotDetected); Staph spp. Not Reported Not Detected (NotDetected); Staphaureus Not Reported Not Detected (NotDetected); Staphepi Not Reported Not Detected (NotDetected); Stenmaltophilia Not Reported Not Detected (NotDetected); Strep agal(GrpB) Not Reported Not Detected (NotDetected); Strep pneum Not Reported Not Detected (NotDetected); Strep pyog (GrpA) Not Reported Not Detected (NotDetected); Strep spp Not Reported Not Detected (NotDetected); VIM Resistant Gene Not Detected (NotDetected); mcr-1 Colistin Resistant Gene Not Detected (NotDetected)
--- NOTE | 2022-01-04 12:45 | Hospitalist Progress Note ---
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 She is being managed for the following: Right pyoureter Complicated UTI Gram-negative bacilli bacteremia Severe Sepsis POA: WBC and pulse rate elevated along with UTI at presentation. Lactic acid elevated at 2.3. Patient presents with dysuria symptoms for 3 days [employer] associated with chills [see above] Admitting CTAP suggestive of right pyoureter and cystitis. Admitting UA suggestive of UTI, admitting urine culture with gram-negative bacilli, admitting blood culture with gram-negative bacilli, follow final culture results Pain management, continue with cefepime 01/04-->rocephin 01/04, urology consult, ID consult. Clinically patient reports improvement in her low belly pain and lower back pain. No CVA tenderness. Lactic acid normalized. Differential BP in B/L arms: by more than 10 mmHg, will send NATHALIA, ESR, CRP. Concern for vasculitis. Likely will need OP Rheumatology eval. Pt made aware. Other chronic medical conditions: PE history status post Coumadin course, mood disorder, borderline DM, constipation, ongoing tobacco abuse Continue with home meds. Bowel regimen. Nicotine patch as needed. A1c pending. DVT prophylaxis. Heparin subcu Full code Admission and Anticipated Discharge Date Admission Date: January 03, 2022 Subjective Patient seen and examined at bedside as a follow-up of right pyoureter, complicated UTI and GNB bacteremia. Patient was lying in bed, on room air, NAD, denies any new acute events overnight. Patient reports improvement in her lower belly pain and low back pain that she came in with. Patient reports eating okay, patient has not moved bowel in 6 days [usual habit every 2 to 3 days], but is moving gas. Patient denies any fever but reports chills prior to arrival, denies sore throat or cough or chest pain or palpitation or other review of symptoms. Pt reports feeling better. Pt getting stool softeners/laxatives. Physical Exam Physical Exam: GENERAL: Alert and oriented x3. NAD, on RA. HEENT: No pallor, no icterus. Pupils equal, round and reactive to light. Oral mucosa moist. NECK: No JVD, no neck masses. HEART: S1 and S2 heard. Regular rate and rhythm. No murmur, no gallop. RESPIRATORY SYSTEM: Normal AP diameter. No accessory muscle use. No wheezing, no crackles. ABDOMEN: Soft, bowel sounds present, nontender but vague lower belly discomfort on exam, no distention. CENTRAL NERVOUS SYSTEM: No facial droop. Speech is clear. Obeys simple commands. Moves extremities. EXTREMITIES: No edema, no erythema seen. No CVA tenderness Results & Data Results & Data ([facility]) Vital Signs (Past 12 Hours) Vital Signs Temp Pulse Pulse Resp BP BP Pulse Ox 01/04/22 11:43 37.9 C H 98 H 18 79/57 L 111/67 93 01/04/22 09:00 94 H 01/04/22 08:38 36.7 C 88 17 66/45 L 93/51 L 94 01/04/22 06:06 74/48 L 97/61 L 01/04/22 04:24 37.3 C 100 H 20 73/43 L 100 01/04/22 00:39 100/61 O2 Del Method 01/04/22 11:43 Room Air 01/04/22 09:00 01/04/22 08:38 Room Air 01/04/22 06:06 01/04/22 04:24 01/04/22 00:39
[2022-01-04] MEDS: ACETAMINOPHEN 325 MG TAB PO PRN ×2 (13:29→20:04)
[2022-01-04] MEDS: cefTRIAXone SODIUM 2,000 MG in DEXTROSE 5% 50 ML IV SCH (13:59)
[2022-01-04] MEDS ORDERED: LACTULOSE SYRUP 30 GM/45 ML UDP PO STA (19:37)
[2022-01-04] MEDS: DOCUSATE SODIUM/SENNA 50/8.6MG TAB PO SCH (20:04)
[2022-01-05] MEDS: ACETAMINOPHEN 325 MG TAB PO PRN ×3 (05:18→20:11)
[2022-01-05] MEDS: traMADol HCL 50 MG TABLET PO PRN (05:18)
[2022-01-05] MEDS: HEPARIN SOD 5,000 UNIT/0.5 ML VIAL SQ SCH ×3 (05:18→20:12)
[2022-01-05 06:35] LABS: Estimated Average Glucose 126 mg/dl
[2022-01-05 08:38] LABS: Hematocrit (blood only) 31.9 % (34.1-44.9); Hemoglobin 10.5 g/dl (12.0-16.0); Mean Corpuscular Hemoglobin 32.8 pg (25.0-34.0); Mean Corpuscular Hgb Conc 32.9 g/dL (32.0-36.0); Mean Corpuscular Volume 99.7 fL (80.0-100.0); Mean Platelet Volume 9.3 fL (9.4-12.3); Platelet Count 188 K/uL (130-400); RDW Coefficient of Variation 13.2 % (11.5-14.5); RDW Standard Deviation 48.8 fL (36.4-46.3); White Blood Count 9.68 K/ul (4.8-10.8)
[2022-01-05] MEDS: cefTRIAXone SODIUM 2,000 MG in DEXTROSE 5% 50 ML IV SCH (08:41)
[2022-01-05] MEDS: DOCUSATE SODIUM/SENNA 50/8.6MG TAB PO SCH ×2 (08:42→20:11)
[2022-01-05 09:01] LABS: BUN Creatinine Ratio 13.5 (10-20); Calcium 8.3 mg/dl (8.5-10.1); Creatinine Clr Calc Pharmacy 80.2 ml/min; Est GFR (African American) 109.5 ml/min; Est GFR (Non-African American) 94.5 ml/min; Magnesium 1.9 mg/dl (1.7-2.4); Phosphorus 2.6 mg/dl (2.5-4.9); Potassium 3.7 mmol/L (3.5-5.1)
--- NOTE | 2022-01-05 09:09 | Urology Progress Note ---
Date of Service January 05, 2022 Assessment & Plan (1) Pyelonephritis: (2) Severe sepsis: Plan 51 yo F admitted for pyelonephritis and sepsis. - Afebrile overnight, last febrile (T 38.2) on 01/04 @2029. - Lab work reviewed - creatinine 0.74, WBC 9.68, Hgb 10.5. - She seems to be improving with antibiotics and fluids. - Urine culture 01/03 grew out E. coli - on IV Ceftriaxone per primary service. - Blood cultures growing gram negative bacilli - follow cultures. - She is not having flank pain and no clear obstruction noted on CT imaging. - No acute surgical intervention planned at this time. - Continue supportive care, antibiotics, and management per primary service. - If she has persistent fevers or positive cultures after another 48 to 72 hours, recommend reimaging to evaluate for possible abscess formation within the kidneys, although CT from 01/03 did not identify any drainable fluid collection. - Will plan for outpatient follow-up with our service for discussion of preventing recurrent UTI. - Urology will follow along. Admission and Anticipated Discharge Date Admission Date: January 03, 2022 Subjective Patient seen and examined at bedside this AM. She is awake, alert and sitting up in bed. Reports feeling much better this AM. Reports fever/chills yesterday evening, but then slept well overnight without issues. No flank, abdominal or suprapubic pain. She is voiding spontaneously without difficulty, no dysuria or hematuria. She had a BM. Tolerating PO diet. No fever, chills, nausea or vomiting at present. Review of Systems Constitutional: as per Subjective / HPI Gastrointestinal: as per Subjective / HPI Genitourinary: as per Subjective / HPI Physical Exam Constitutional: well developed and well nourished; no acute distress and not ill appearing Respiratory: normal respiratory effort and able to speak in complete sentences; no respiratory distress and no labored breathing Cardiovascular: Extremities: no pedal edema Gastrointestinal (Abdomen): Inspection/Auscultation: abdomen normal to inspection; abdomen not distended Percussion/Palpation: abdomen soft; abdomen nontender and no guarding Musculoskeletal: Extremities: extremities normal to inspection Neurologic: moves all extremities and awake Psychiatric: Orientation: alert, oriented x 3 and cooperative Genitourinary: no CVA tenderness Results & Data ([facility]) Vital Signs (Past 12 Hours) Vital Signs Temp Pulse Pulse Pulse Resp BP BP 01/05/22 09:02 91 H 01/05/22 07:32 37.3 C 89 18 91/60 L 01/05/22 05:13 37.5 C 110 H 01/05/22 03:17 36.8 C 74 18 95/59 L 01/04/22 23:00 89 01/04/22 23:28 36.9 C 83 18 93/55 L Pulse Ox O2 Del Method 01/05/22 09:02 01/05/22 07:32 91 Room Air 01/05/22 05:13 01/05/22 03:17 97 Room Air 01/04/22 23:00 01/04/22 23:28 92 Room Air PG Care Time/CCT Total # of Minutes Spent Total Time Spent with Patient: Total time spent is greater than 50% in coordination of care (as documented) at patient's floor/unit and/or counseling patient: Coding Level of Care Code 43557 Subseq Hosp Care Lvl 2 Diagnoses Pyelonephritis N12 Severe sepsis A41.9; R65.20
[2022-01-05] MEDS: KETOROLAC TROMETHAMINE 15 MG/ML VIAL IV PRN ×2 (12:36→20:20)
--- NOTE | 2022-01-05 18:24 | Hospitalist Progress Note ---
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 She is being managed for the following: Right pyoureter Complicated UTI Gram-negative bacilli bacteremia Severe Sepsis POA: WBC and pulse rate elevated along with UTI at presentation. Lactic acid elevated at 2.3. 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 Admitting UA suggestive of UTI, admitting urine culture with gram-negative bacilli, admitting blood culture with gram-negative bacilli, follow final culture results Pain management, continue with cefepime 01/04-->rocephin 01/04, urology consult, ID consult. Clinically patient reports improvement in her low belly pain and lower back pain. No CVA tenderness. Lactic acid normalized. Pt w/ fever until yesterday evening, will repeat blood culture today evening. Differential BP in B/L arms: by more than 10 mmHg, will send JOSE JUAN, ESR, CRP--->jose juan pending, esr/crp elevated but not markedly and also could be due to current acute illness. Concern for vasculitis. Likely will need OP Rheumatology eval. Pt made aware. Other chronic medical conditions: PE history status post Coumadin course, mood disorder, borderline DM, constipation, ongoing tobacco abuse Continue with home meds. Bowel regimen. Nicotine patch as needed. A1c pending. DVT prophylaxis. Heparin subcu Full code Dispo: pending ID, negative repeat bl cx report. Admission and Anticipated Discharge Date Admission Date: January 03, 2022 Subjective Patient seen and examined at bedside as a follow-up of right pyoureter, complicated UTI and GNB bacteremia. Patient was lying in bed, on room air, NAD, denies any new acute events overnight. Patient reports improvement in her lower belly pain and low back pain that she came in with. Patient reports eating okay, reports moving bowels ok[usual habit every 2 to 3 days]. Patient denies any fever but reports chills prior to arrival, denies sore throat or cough or chest pain or palpitation or other review of symptoms. Pt reports feeling better. Pt had fever until yesterday evening. Physical Exam Physical Exam: GENERAL: Alert and oriented x3. NAD, on RA. HEENT: No pallor, no icterus. Pupils equal, round and reactive to light. Oral mucosa moist. NECK: No JVD, no neck masses. HEART: S1 and S2 heard. Regular rate and rhythm. No murmur, no gallop. RESPIRATORY SYSTEM: Normal AP diameter. No accessory muscle use. No wheezing, no crackles. ABDOMEN: Soft, bowel sounds present, nontender but vague lower belly discomfort on exam, no distention. CENTRAL NERVOUS SYSTEM: No facial droop. Speech is clear. Obeys simple commands. Moves extremities. EXTREMITIES: No edema, no erythema seen. No CVA tenderness Results & Data Results & Data ([facility]) Vital Signs (Past 12 Hours) Vital Signs Temp Pulse Pulse Resp BP Pulse Ox O2 Del Method 01/05/22 16:07 93 H 01/05/22 16:01 36.9 C 76 18 103/60 94 Room Air 01/05/22 12:37 37 C 01/05/22 12:00 36.4 C L 87 18 97 Room Air 01/05/22 09:02 91 H 01/05/22 07:32 37.3 C 89 18 91/60 L 91 Room Air
[2022-01-06] MEDS: ACETAMINOPHEN 325 MG TAB PO PRN (05:29)
[2022-01-06] MEDS: HEPARIN SOD 5,000 UNIT/0.5 ML VIAL SQ SCH ×3 (05:29→20:24)
[2022-01-06] MEDS: cefTRIAXone SODIUM 2,000 MG in DEXTROSE 5% 50 ML IV SCH (08:38)
[2022-01-06] MEDS: DOCUSATE SODIUM/SENNA 50/8.6MG TAB PO SCH ×2 (08:39→20:23)
--- NOTE | 2022-01-06 08:58 | Urology Progress Note ---
Date of Service January 06, 2022 Assessment & Plan (1) Pyelonephritis: (2) Severe sepsis: Plan 51 yo F admitted for pyelonephritis and sepsis. - Afebrile overnight, last febrile on 01/04. - Pt seems to be improving with antibiotics. - Subjectively doing very well. - Creatinine and WBC within normal limits yesterday, no new labs today at time of visit. - Urine culture and blood cultures 01/03 grew out E. coli - on IV Ceftriaxone per primary service. - Repeat blood cultures 01/05 are pending. - She is not having flank pain and no clear obstruction noted on CT imaging. - No acute surgical intervention indicated at this time. - Continue supportive care, antibiotics, and management per primary service. - Recommend transition to appropriate PO antibiotics upon discharge. - Will plan for outpatient follow-up with our service for discussion of preventing recurrent UTI. - Thank you for allowing us to participate in the acute care of Ms. Burgess. Please reconsult us with additional questions, concerns or changes in patient status. Admission and Anticipated Discharge Date Admission Date: January 03, 2022 Subjective Patient awake, alert and sitting up in bed. Subjectively doing very well. She says she would like to go home. No acute issues overnight. No abdominal, flank or suprapubic pain. Voiding spontaneously without difficulty, no dysuria or hematuria. Tolerating diet, no nausea or vomiting. No fever or chills. Review of Systems Constitutional: as per Subjective / HPI Gastrointestinal: as per Subjective / HPI Genitourinary: as per Subjective / HPI Physical Exam Constitutional: well developed and well nourished; no acute distress and not ill appearing Respiratory: normal respiratory effort and able to speak in complete sentences; no respiratory distress and no labored breathing Cardiovascular: Extremities: no pedal edema Gastrointestinal (Abdomen): Inspection/Auscultation: abdomen normal to inspection; abdomen not distended Percussion/Palpation: abdomen soft; abdomen nontender and no guarding Musculoskeletal: Extremities: extremities normal to inspection Neurologic: moves all extremities and awake Psychiatric: Orientation: alert, oriented x 3 and cooperative Genitourinary: no CVA tenderness Results & Data ([facility]) Vital Signs (Past 12 Hours) Vital Signs Temp Pulse Pulse Resp BP BP Pulse Ox 01/06/22 07:12 88 01/06/22 06:47 37.1 C 82 18 108/64 95 01/06/22 04:49 37.3 C 73 18 92/52 L 96 01/05/22 23:25 37.1 C 86 18 110/62 95 01/06/22 00:09 87 O2 Del Method 01/06/22 07:12 01/06/22 06:47 Room Air 01/06/22 04:49 Room Air 01/05/22 23:25 Room Air 01/06/22 00:09 PG Care Time/CCT Total # of Minutes Spent Total Time Spent with Patient: Total time spent is greater than 50% in coordination of care (as documented) at patient's floor/unit and/or counseling patient: Coding Level of Care Code 52530 Subseq Hosp Care Lvl 2 Diagnoses Pyelonephritis N12 Severe sepsis A41.9; R65.20
[2022-01-06 10:25] LABS: Ferritin 207.8 ng/ml (8-388)
[2022-01-06 10:30] LABS: Folate (Folic Acid) 15.81 ng/ml (>5.38)
--- NOTE | 2022-01-06 14:26 | Hospitalist Progress Note ---
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 She is being managed for the following: Right pyoureter Complicated UTI Gram-negative bacilli bacteremia Severe Sepsis POA: WBC and pulse rate elevated along with UTI at presentation. Lactic acid elevated at 2.3. Patient presents with dysuria symptoms for 3 days [employer] associated with chills [see above] Admitting CTAP suggestive of right pyoureter and cystitis. Admitting UA suggestive of UTI, admitting urine culture with gram-negative bacilli, admitting blood culture with gram-negative bacilli, follow final culture results Pain management, continue with cefepime 01/04-->rocephin 01/04, urology consult, ID consult. Clinically patient reports improvement in her low belly pain and lower back pain. No CVA tenderness. Lactic acid normalized. ID evaluated 01/05, appreciate recs. Pt afebrile since >1 day, f/u repeat bl Cx 01/05, if no growth for 48 hours then can DC, if positive then repeat imaging to r/o abscess. Differential BP in B/L arms: by more than 10 mmHg, will send JOSE JUAN, ESR, CRP--->jose juan pending, esr/crp elevated but not markedly and also could be due to current acute illness. Concern for vasculitis. Likely will need OP Rheumatology eval. Pt made aware. Other chronic medical conditions: PE history status post Coumadin course, mood disorder, borderline DM, constipation, ongoing tobacco abuse Continue with home meds. Bowel regimen. Nicotine patch as needed. A1c 6.0. DVT prophylaxis. Heparin subcu Full code Dispo: after negative repeat bl cx. On PO ATB per ID recs. Admission and Anticipated Discharge Date Admission Date: January 03, 2022 Subjective Patient seen and examined at bedside as a follow-up of right pyoureter, complicated UTI and GNB bacteremia. Patient was lying in bed, on room air, NAD, denies any new acute events overnight. Patient reports no lower belly pain and no low back pain that she came in with. Patient reports eating okay, reports moving bowels ok [usual habit every 2 to 3 days]. Patient denies any fever but reports chills prior to arrival, denies sore throat or cough or chest pain or palpitation or other review of symptoms. Pt reports feeling better. Pt has been afebrile since slightly more than one day. Physical Exam Physical Exam: GENERAL: Alert and oriented x3. NAD, on RA. HEENT: No pallor, no icterus. Pupils equal, round and reactive to light. Oral mucosa moist. NECK: No JVD, no neck masses. HEART: S1 and S2 heard. Regular rate and rhythm. No murmur, no gallop. RESPIRATORY SYSTEM: Normal AP diameter. No accessory muscle use. No wheezing, no crackles. ABDOMEN: Soft, bowel sounds present, nontender but vague lower belly discomfort on exam, no distention. CENTRAL NERVOUS SYSTEM: No facial droop. Speech is clear. Obeys simple commands. Moves extremities. EXTREMITIES: No edema, no erythema seen. No CVA tenderness Results & Data Results & Data ([facility]) Vital Signs (Past 12 Hours) Vital Signs Temp Pulse Pulse Resp BP Pulse Ox O2 Del Method 01/06/22 11:00 37.0 C 64 18 96/60 L 97 Room Air 01/06/22 07:12 88 01/06/22 06:47 37.1 C 82 18 108/64 95 Room Air 01/06/22 04:49 37.3 C 73 18 92/52 L 96 Room Air
[2022-01-06 14:51] LABS: Anti Nuclear Antibody Screen NEGATIVE (NEGATIVE)
[2022-01-06] MEDS: CYANOCOBALAMIN (B-12) 100 MCG TABLET PO SCH (15:55)
[2022-01-06] MEDS: IBUPROFEN 200 MG TAB PO PRN (16:39)
[2022-01-07] MEDS: HEPARIN SOD 5,000 UNIT/0.5 ML VIAL SQ SCH (06:23)
[2022-01-07] MEDS: DOCUSATE SODIUM/SENNA 50/8.6MG TAB PO SCH (08:45)
[2022-01-07] MEDS: CYANOCOBALAMIN (B-12) 100 MCG TABLET PO SCH (08:45)
[2022-01-07 08:50] LABS: Hematocrit (blood only) 33.4 % (34.1-44.9); Hemoglobin 11.3 g/dl (12.0-16.0); Mean Corpuscular Hemoglobin 32.7 pg (25.0-34.0); Mean Corpuscular Hgb Conc 33.8 g/dL (32.0-36.0); Mean Corpuscular Volume 96.5 fL (80.0-100.0); Mean Platelet Volume 9.3 fL (9.4-12.3); Platelet Count 296 K/uL (130-400); RDW Coefficient of Variation 13.3 % (11.5-14.5); RDW Standard Deviation 47.6 fL (36.4-46.3); Red Blood Count 3.46 M/uL (3.93-5.22)
[2022-01-07] MEDS ORDERED: FERROUS SULFATE 325 MG TAB PO SCH (09:00)
[2022-01-07] MEDS: cefTRIAXone SODIUM 2,000 MG in DEXTROSE 5% 50 ML IV SCH (09:03)
--- NOTE | 2022-01-07 10:45 | Hospitalist Progress Note ---
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 She is being managed for the following: Right pyoureter Complicated UTI Gram-negative bacilli bacteremia Severe Sepsis POA: WBC and pulse rate elevated along with UTI at presentation. Lactic acid elevated at 2.3. 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 Admitting UA suggestive of UTI, admitting blood culture with gram-negative bacilli (E. coli), follow final culture results Pain management, continue with cefepime 01/04-->rocephin 01/04, urology consult, ID consult. Clinically patient reports improvement in her low belly pain and lower back pain. No CVA tenderness. Lactic acid normalized. ID evaluated 01/05, appreciate recs. Pt afebrile now. WBC normalized. f/u repeat bl Cx 01/05, - plan -if no growth for 48 hours then can DC, if positive then repeat imaging to r/o abscess. However, pt wants to be discharged as she has to attend to her dogs at home. WBC normal. Afebrile. Blood culture from 01/05 so far negative. Will DC on Cipro. Close outpt follow up. Will contact her if blood cultx positive. Different BP in B/L arms: by more than 10 mmHg, sent JOSE JUAN, ESR, CRP--->jose juan pending, esr/crp elevated but not markedly and also could be due to current acute illness. Concern for vasculitis. Likely will need OP Rheumatology eval. Pt made aware. Other chronic medical conditions: PE history status post Coumadin course, mood disorder, borderline DM, constipation, ongoing tobacco abuse Continue with home meds. Bowel regimen. Nicotine patch as needed. A1c 6.0. DVT prophylaxis. Heparin subcu Full code Dispo: home On PO ATB Admission and Anticipated Discharge Date Admission Date: January 03, 2022 Subjective Patient seen and examined at bedside as a follow-up of right pyoureter, complicated UTI and GNB bacteremia. Patient is eager for discharge, reports that she has dogs at home that needs to be taking care of and she has nobody to help her. She states she has to leave today. Also reports that she lives quite far away and she only has a ride available now. Explained that ideally we would await blood culture, she understands that and says that she will report back when she needs to/contacted. Unfortunately though she has to leave today as stated above. She reports that she is feeling just fine, denies any fevers, chills, lower abdominal pain, flank pain. She is urinating without any difficulty. She is walking around in hallways, no dizziness or lightheadedness. No chest pain, or shortness of breath. WBC has been normal, patient has been afebrile, blood cultures from January 05 negative so far Review of Systems Review of Systems: All systems reviewed & are unremarkable except as noted in Subjective Physical Exam Physical Exam: GENERAL: Alert and oriented x3. NAD, on RA. HEENT: No pallor, no icterus. EOMI. Pupils equal, round and reactive to light. Oral mucosa moist. NECK: No JVD, no neck masses. HEART: S1 and S2 heard. Regular rate and rhythm. No murmur, no gallop. RESPIRATORY: Normal AP diameter. No accessory muscle use. No wheezing, no crackles. ABDOMEN: Soft, bowel sounds present, nontender, no distention. Back: No CVA tenderness NEURO:Alert oriented, answering simple questions appropriately, no facial droop. Speech is clear. Obeys simple commands. Moves extremities. EXTREMITIES: No edema, no erythema seen. Results & Data Results & Data ([facility]) Vital Signs (Past 12 Hours) Vital Signs Temp Pulse Resp BP Pulse Ox O2 Del Method 01/07/22 08:57 36.7 C 70 16 98/48 L 97 Room Air 01/06/22 23:46 37.0 C 80 18 111/63 96 Room Air Laboratory Results 01/07/22 01/07/22 01/06/22 Range/Units 08:25 07:45 20:17 WBC 5.70 (4.8-10.8) K/ul RBC 3.46 L (3.93-5.22) M/uL Hgb 11.3 L (12.0-16.0) g/dl Hct 33.4 L (34.1-44.9) % MCV 96.5 (80.0-100.0) fL MCH 32.7 (25.0-34.0) pg MCHC 33.8 (32.0-36.0) g/dL RDW Std Deviation 47.6 H (36.4-46.3) fL RDW Coeff of Nicole 13.3 (11.5-14.5) % Plt Count 296 (130-400) K/uL MPV 9.3 L (9.4-12.3) fL POC Glucose 100 H 158 H (70-99) mg/dl JOSE JUAN Screen (NEGATIVE) 01/06/22 01/06/22 01/04/22 Range/Units 16:38 11:37 13:14 WBC (4.8-10.8) K/ul RBC (3.93-5.22) M/uL Hgb (12.0-16.0) g/dl Hct (34.1-44.9) % MCV (80.0-100.0) fL MCH (25.0-34.0) pg MCHC (32.0-36.0) g/dL RDW Std Deviation (36.4-46.3) fL RDW Coeff of Nicole (11.5-14.5) % Plt Count (130-400) K/uL MPV (9.4-12.3) fL POC Glucose 107 H 128 H (70-99) mg/dl JOSE JUAN Screen NEGATIVE (NEGATIVE) Medications Administered Current Inpatient Medications Acetaminophen (Acetaminophen 325 Mg Tab) 650 mg PO Q4H PRN PRN Reason: Pain or Fever Stop: 02/03/22 00:20 Last Admin: 01/06/22 05:29 Dose: 650 mg Cyanocobalamin (Cyanocobalamin (B-12) 100 Mcg Tablet) [address] [facility] Stop: 02/05/22 14:29 Last Admin: 01/07/22 08:45 Dose: 100 mcg Ferrous Sulfate (Ferrous Sulfate 325 Mg Tab) [address] [facility] Stop: 02/06/22 08:59 Last Admin: 01/07/22 08:45 Dose: 325 mg Heparin Sodium (Porcine) (Heparin Sod 5,000 Unit/0.5 Ml Vial) 5,000 units SQ Q8 [facility] Stop: 02/03/22 05:59 Last Admin: 01/07/22 06:23 Dose: Not Given Promethazine HCl 6.25 mg/ (Sodium Chloride) 50.25 mls @ 201 mls/hr IV Q6H PRN PRN Reason: Nausea And Vomiting Stop: 02/03/22 00:20 Ceftriaxone Sodium 2,000 mg/ (Dextrose) 70 mls @ 100 mls/hr IV DAILY [facility]; Protocol Stop: 01/18/22 13:14 Last Infusion: 01/07/22 10:17 Dose: Infused Ibuprofen (Ibuprofen 200 Mg Tab) 200 mg PO Q6H PRN PRN Reason: Mild Pain 1-3 Stop: 02/02/22 22:45 Last Admin: 01/06/22 16:39 Dose: 200 mg Ketorolac Tromethamine (Ketorolac Tromethamine 15 Mg/Ml Vial) 15 mg IV Q6H PRN PRN Reason: Pain Stop: 01/08/22 22:45 Last Admin: 01/05/22 20:20 Dose: 15 mg Phenazopyridine HCl (Phenazopyridine Hcl 100 Mg Tab) 100 mg PO TID PRN PRN Reason: Bladder pain Stop: 02/03/22 02:09 Polyethylene Glycol (Polyethylene (Miralax) 17 Gm Pack) 17 gm PO DAILY PRN PRN Reason: Constipation Stop: 02/02/22 22:45 Senna/Docusate Sodium (Docusate Sodium/Senna 50/8.6mg Tab) 1 tab PO BID [facility] Stop: 02/03/22 19:39 Last Admin: 01/07/22 08:45 Dose: 1 tab Tramadol HCl (Tramadol Hcl 50 Mg Tablet) 25 mg PO Q4H PRN PRN Reason: Pain Stop: 02/02/22 22:45 Last Admin: 01/05/22 05:18 Dose: 25 mg
--- NOTE | 2022-01-07 12:07 | Discharge Summary ---
Date of Service January 07, 2022 Admission HPI Per Admitting Provider (Patient with prior [facility] account under the name Jayda Lundy, ) History obtained from patient and records. 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 Last confinement June 2015 for acute pulm embolism attributed to possible tamoxifen use. Patient discharged home on Coumadin course. Patient seen at the ER last month for low back pain with urinary frequency/dysuria and low-grade fever. Impression was pyelonephritis. Patient discharged on levofloxacin course Symptoms improved. 3 days history of dysuria symptoms associated with flank pain and lower abdominal pain. No hematuria. Some nausea. No emesis. Constipation. Fever chills at home no chest pain, no shortness of breath. Meropenem administered at the ER for sepsis. 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 Admission Exam Per Admitting Provider GENERAL: Slightly uncomfortable, pleasant, underweight, dysphonic, no respiratory distress SKIN: Normal color, warm HEENT: [place] palpebral conjunctivae, no ptosis, dry buccal mucosa NECK : Supple, no tenderness CHEST : CTA, no tenderness HEART : Tachycardic, no obvious murmurs ABDOMEN: Some distention, hypogastric tenderness EXTREMITIES : No LE swelling/tenderness, no other conspicuous deformities noted NEUROLOGIC : Coherent, no facial asymmetry, no other gross focality Principal Diagnosis Sepsis, pyelonephritis Discharge Exam GENERAL: Alert and oriented x3. NAD, on RA. HEENT: No pallor, no icterus. EOMI. Pupils equal, round and reactive to light. Oral mucosa moist. NECK: No JVD, no neck masses. HEART: S1 and S2 heard. Regular rate and rhythm. No murmur, no gallop. RESPIRATORY: Normal AP diameter. No accessory muscle use. No wheezing, no crackles. ABDOMEN: Soft, bowel sounds present, nontender, no distention. Back: No CVA tenderness NEURO:Alert oriented, answering simple questions appropriately, no facial droop. Speech is clear. Obeys simple commands. Moves extremities. EXTREMITIES: No edema, no erythema seen. Discharge Data Allergies Allergy/AdvReac Type Severity Reaction Status Date / Time Penicillins Allergy Severe as Unverified 01/03/22 22:14 child-throat swelled, hives ALL PAIN MEDS Allergy Unknown very Uncoded 01/03/22 22:14 sensative to even sm doses. very sleepy Consultations 01/03/22 21:53 ED Decision to Admit Stat 01/04/22 08:32 Consult Urology Routine 01/04/22 12:35 Consult Infectious Diseases Routine Ordered Studies 01/03/22 20:56 CT abd pelvis IV con only Stat FINDINGS: Lower chest: No acute abnormality Liver: Unremarkable. No focal lesions are seen. Gallbladder and biliary tree: No calcified gallstones. Normal caliber wall. No intra- or extrahepatic biliary ductal dilation. Pancreas: Unremarkable, no focal lesions. Spleen: Unremarkable. Adrenals: Mild ureteral thickening is unchanged from prior exam. Kidneys and ureters: The right kidney demonstrates wedge-shaped hypoperfusing regions without intact cortical rim. There is perinephric stranding. The ureter wall is thickened and hyperenhancing. The left kidney is unremarkable apart from subcentimeter hypodensities.. Bladder: Diffuse homogeneous wall thickening is seen. Reproductive organs: Unremarkable. Bowel: Unremarkable. Lymph nodes Retroperitoneal: Subcentimeter lymph nodes are noted. Pelvic: Unremarkable. Mesenteric: Unremarkable. Peritoneum: Normal. Vessels: Atherosclerotic calcifications are seen. Abdominal wall: Unremarkable. Bones: Degenerative changes in the visualized spine. IMPRESSION: 1. Findings are compatible with right pyoureter. Bladder wall thickening is compatible with cystitis. The left kidney is unremarkable. 2. Additional findings as above. ACT 112: Negative or not required by law. Electronically signed by: Kevin Sparks M.D. 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 She is being managed for the following: Right pyoureter Complicated UTI Gram-negative bacilli bacteremia Severe Sepsis POA: WBC and pulse rate elevated along with UTI at presentation. Lactic acid elevated at 2.3. 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 Admitting UA suggestive of UTI, admitting blood culture with gram-negative bacilli (E. coli), follow final culture results Pain management, continue with cefepime 01/04-->rocephin 01/04, urology consult, ID consult. Clinically patient reports improvement in her low belly pain and lower back pain. No CVA tenderness. Lactic acid normalized. ID evaluated 01/05, appreciate recs. Pt afebrile now. WBC normalized. f/u repeat bl Cx 01/05 - plan -if no growth for 48 hours then can DC, if positive then repeat imaging to r/o abscess. However, pt wants to be discharged as she has to attend to her dogs at home. WBC normal. Afebrile. Blood culture from 01/05 so far negative. Will DC on Cipro. Close outpt follow up. Will contact her if blood cultx positive. Pt aware and agreeable. Different BP in B/L arms: by more than 10 mmHg, sent JOSE JUAN, ESR, CRP--->jose juan pending, esr/crp elevated but not markedly and also could be due to current acute illness. Concern for vasculitis. Likely will need OP Rheumatology eval. Pt made aware. Other chronic medical conditions: PE history status post Coumadin course, mood disorder, borderline DM, constipation, ongoing tobacco abuse Continue with home meds. Bowel regimen. Nicotine patch as needed. A1c 6.0. Total Time Total Time Spent Total Time Spent (In Minutes): 40 Discharge Plan Discharge Items Patient Disposition: Home - Self-Care Reason For Visit: SEPSIS Discharge Diagnosis: Sepsis, pyelonephritis Activity: Per Instructions section Non-emergency contact: Primary Care Provider and Urologist Call non-emergency contact if: you have any medication questions and your symptoms worsen Follow-up/Referrals: Lauren Shen MD [Outside Practitioners] - (Date & Time 01/12/2022 11:20 AM Provider Lauren Shen MD Department [address] [address] ) Diet: Regular Addtl Attending Provider Instructions: Follow-up with primary care doctor, the appointment is scheduled for you for January 12. Take antibiotics, ciprofloxacin, as prescribed. Final results of blood cultures are still pending. You will need to follow-up on results. Pending Studies at Discharge: Yes Studies:: Final blood culture Stand-Alone Forms: My [facility], Smoking Cessation Medications and DC Order Prescriptions: New ciprofloxacin HCl 500 mg Tablet 500 mg PO BID 12 Days Qty: 24 0RF ferrous sulfate 325 mg (65 mg iron) Tablet,Delayed Release (Dr/Ec) 325 mg PO QAM Qty: 30 0RF cyanocobalamin (vitamin B-12) [Vitamin B-12] 100 mcg Tablet 100 mcg PO QAM Qty: 30 0RF Discharge Orders: Discharge Order (Routine); Ordered 01/07/22 Ordered By: Thaddeus Mckeon/Other Patient Handouts: Prediabetes Admission Data Admit Date/Time: 01/03/22 22:43 Attending Provider: Thaddeus Parker Admit Provider: Marcos Uriostegui Primary Care Provider: Graham Partida Other Providers: Praful Bailey ; Juliana Coker ; Norman Ashford I. ; Keyur Rodriguez II ; Renita Shepherd ; Raul Queen ; Alex Wyatt ; Enzo Gomez ; Marcos Uriostegui ; Camilo Stern
--- NOTE | 2022-01-07 14:06 | Electrocardiogram Report ---
Test Reason : Blood Pressure : / mmHG Vent. Rate : 070 BPM Atrial Rate : 070 BPM P-R Int : 142 ms QRS Dur : 078 ms QT Int : 388 ms P-R-T Axes : 087 087 052 degrees QTc Int : 419 ms Normal sinus rhythm Normal ECG When compared with ECG of 30-DEC-2015 13:28, No significant change was found Confirmed by Roland Alejandro ([id number]) on 01/07/2022 2:05:42 PM Referred By: REFERRED SELF Confirmed By:Roland Alejandro
[2022-01-07] MEDS ORDERED: CIPROFLOXACIN 500 MG TAB PO SCH (21:00)
== END 2022-01-07 12:44 | disposition home or self-care (01) | DRG 872 ==
LOC: ED 19:45 → SUATTDRO 22:43 → 2W 22:43